=== PATIENT | female | born 1980 | race Caucasian/White ===

== ENCOUNTER 2020-09-05 16:11 | Outpatient (REF) | payer OTHER, SELFPAY ==
--- NOTE | 2020-09-05 16:16 | MM_ITS ---
EXAMINATION: MM SCREENING DIGITAL BREAST TOMOSYNTHESIS, BILATERAL CLINICAL INFORMATION: Screening. Asymptomatic. The lifetime risk of breast cancer based on the Tyrer-Cuzick Model is 10%. COMPARISON: Mammography: 08/28/2019 (baseline) TECHNIQUE: Digital breast tomosynthesis is performed in both the craniocaudal and mediolateral oblique views along with computer-aided detection (CAD). Synthesized 2D images are generated from the tomosynthesis. FINDINGS: There are scattered areas of fibroglandular density (ACR BI-RADS breast composition Category b). There are no significant masses, abnormal calcifications, or other abnormalities. No significant changes from prior baseline exam. MM/MM tomosynthesis screening BI IMPRESSION: There are no significant changes from prior study. ASSESSMENT: BI-RADS 1: Negative RECOMMENDATION: Routine annual mammography screening. This patient's information was entered into a reminder system with a target due date for their next mammogram.
== END 2020-09-05 16:12 | disposition home or self-care (01) ==
LOC: HO.MAMMO 16:11
PROVIDERS: PCP Physician Assistant; Visit Provider Physician Assistant
DX: Z12.31 Encounter for screening mammogram for malignant neoplasm of breast (principal)
CPT/HCPCS: 77063; 77067

== ENCOUNTER 2022-12-04 15:32 | Outpatient (REF) | payer OTHER, SELFPAY ==
--- NOTE | ~2022-12-04 | MM_ITS ---
EXAMINATION: MM SCREENING DIGITAL BREAST TOMOSYNTHESIS, BILATERAL CLINICAL INFORMATION: Screening. Asymptomatic. The lifetime risk of breast cancer based on the Tyrer-Cuzick Model is 10%. COMPARISON: Mammography: September 05, 2020 and August 28, 2019 TECHNIQUE: Digital breast tomosynthesis is performed in both the craniocaudal and mediolateral oblique views along with computer-aided detection (CAD). Synthesized 2D images are generated from the tomosynthesis. FINDINGS: The breasts are heterogeneously dense, which may obscure small masses (ACR BI-RADS breast composition Category c). There are no significant masses, abnormal calcifications, or other abnormalities. MM/MM tomosynthesis screening BI IMPRESSION: No significant changes ASSESSMENT: BI-RADS 1: Negative RECOMMENDATION: Routine annual mammography screening. This patient's information was entered into a reminder system with a target due date for their next mammogram.
== END 2022-12-04 15:33 | disposition home or self-care (01) ==
LOC: HO.MAMMO 15:32
PROVIDERS: Visit Provider Physician Assistant
DX: Z12.31 Encounter for screening mammogram for malignant neoplasm of breast (principal)
CPT/HCPCS: 77063; 77067

== ENCOUNTER 2024-10-01 15:26 | Outpatient (REF) | payer OTHER, SELFPAY ==
--- NOTE | ~2024-10-01 | MM_ITS ---
EXAMINATION: MM SCREENING DIGITAL BREAST TOMOSYNTHESIS, BILATERAL CLINICAL INFORMATION: Screening. Asymptomatic. COMPARISON: Mammography: Comparison is made with available priors TECHNIQUE: Digital breast mammography with tomosynthesis is performed in both the craniocaudal and mediolateral oblique views along with computer-aided detection (CAD). FINDINGS: The breasts are heterogeneously dense, which may obscure small masses (ACR BI-RADS breast composition Category c). There are no significant masses, abnormal calcifications, or other abnormalities. MM/MM tomosynthesis screening BI IMPRESSION: No mammographic evidence of malignancy. ASSESSMENT: BI-RADS BI-RADS 1 - Negative RECOMMENDATION: Routine annual mammography screening. 1 year F/U This examination should not preclude the clinical evaluation of a suspicious palpable abnormality. This patient's information was entered into a reminder system with a target due date for their next mammogram. Electronically signed by: Kenyetta Cote DO 10/12/2024 09:40 AM IBETH
== END 2024-10-01 15:27 | disposition home or self-care (01) ==
LOC: HO.MAMMO 15:26
PROVIDERS: PCP Nurse Practitioner Adult Health; Visit Provider Nurse Practitioner Adult Health
DX: Z12.31 Encounter for screening mammogram for malignant neoplasm of breast (principal)
CPT/HCPCS: 77063; 77067

== ENCOUNTER → 2024-10-01 15:45 | Outpatient (BNV) | payer OTHER, SELFPAY | PROVIDERS: PCP Nurse Practitioner Adult Health; Visit Provider Internal Medicine | DX: Z12.31 Encounter for screening mammogram for malignant neoplasm of breast (principal) | CPT/HCPCS: 77063; 77067 ==

== ENCOUNTER 2025-09-29 15:17 | Outpatient (AMB) | payer OTHER, SELFPAY ==
--- NOTE | 2025-09-29 15:45 | A.OFFPC_ITS ---
Vital Signs 09/29/25 15:55 Height 5 ft 3.35 in Weight 112 lb BMI 19.6 BP 105/59 L Blood Pressure Location Rt brachial Position Sitting Respiration 14 Pulse 78 Pulse Source Pulse Oximeter Temp 97.3 F Temp Source Temporal Artery Scan Pulse Oximetry (%) 96 Oxygen Delivery Method Room Air Intake Visit Reasons: Annual Physical, New patient Associate Professor Of Counseling Required: No Accompanied by: Self / Same As Patient Allergies No Known Allergies Allergy (Verified 09/29/25 16:07) Medication List - Last Reconciled 09/29/25 by Susanne Tan PA-C estradiol 1 patch transdermal QWEEK progesterone micronized 200 mg PO BEDTIME spironolactone 50 mg PO BID Tobacco use date assessed: 09/29/25 Dental Screening Dental Screen Date: 09/29/25 Did you have a dental visit in the last 12 months?: Yes Did you have a dental problem in the last 6 months where you did not have access to dental care?: No Was dental information given to patient?: Patient has dentist HPI HPI Comments History of Present Illness Details History of Present Illness The patient is a 44-year-old female presenting for an annual physical exam and to establish care as a new patient. She has not had a primary care provider in a long time, with her last physical being in 2019. At that time, blood work revealed a low white blood cell count of 4,000, mild anemia with a red blood cell count of 4.14 but normal hemoglobin and hematocrit, and a slightly high bicarbonate of 30. Other lab results including lipids and vitamin D were normal. The patient reports a history of severe migraines that were associated with vomiting and were debilitating, causing her to be bedridden for days. She previously took Imitrex with good effect, but the migraines had resolved and are now starting to recur. The patient is in a perimenopausal state and takes estradiol and progesterone, prescribed by her occupational medicine officer, Amy Moser. She also takes spironolactone, prescribed by her resource engineer for many years, for oily skin, which she finds effective. She had a mole removed last year by her resource engineer, and it was benign. For health maintenance, the patient undergoes annual mammograms and is currently due for one. She has not yet had a screening colonoscopy. She denies any family history of breast, colon, prostate, or skin cancer. Social History - Employment: Employed at [employer]. - Family Status: Has a boyfriend and two daughters, ages 17 and 19. Results - Labs from 2019: Showed a white blood c ell count of 4,000, red blood cell count of 4.14, normal hemoglobin and hematocrit, normal platelets, normal electrolytes, normal kidney function, normal calcium, normal lipids, and good vitamin D level. Bicarbonate was slightly elevated at 30. - Pathology from last year: A removed sk in mole was benign. [facility] Medical History (Updated 09/29/25 @ 16:40 by Susanne Tan PA-C) History of mammogram (~10/01/24) Oily skin Meliza-menopause Healthcare maintenance Migraine headache Annual physical exam Thyroid nodule Family History Father Sepsis Mother Lung cancer Social History Housing: House Alcohol intake: current Alcohol intake frequency: a few times a week Patient Tobacco Use Status: Never used Tobacco service: No Current occupational status: employed Cognitive needs: No Hearing needs: No Vision needs: Yes (reading glasses) Questionnaire PHQ-9 Over the last 2 weeks, how often have you been bothered by any of the following problems? 1. Little interest or pleasure in doing things: not at all 2. Feeling down, depressed, or hopeless: not at all 3. Trouble falling or staying asleep, or sleeping too much: not at all 4. Feeling tired or having little energy: not at all 5. Poor appetite or overeating: not at all 6. Feeling bad about yourself - or that you are a failure or have let yourself or your family down: not at all 7. Trouble concentrating on things, such as reading the newspaper or watching television: not at all 8. Moving or speaking so slowly that other people could have noticed. Or the opposite - being so fidgety or restless that you have been moving around a lot more than usual: not at all 9. Thoughts that you would be better off or of hurting yourself in some way: not at all Total score: 0 Depression Screening Interpretation: Negative Depression Screening Done: Yes 80483 - PHQ-9 Billing: Yes Source: Developed by Drs. Robert Burgos, Joe Evans and colleagues, with an educational maurice from [email or web address]. Thrive Questionnaire Date Thrive assessed: 09/29/25 I am a: Patient What is your living situation today?: I have a steady place to live Within the past 12 months, did the food you bought not last and you didn't have the money to get more?: Never true Within the past 12 months, did you worry whether your food would run out before you got money to buy more?: Never true Do you have trouble paying for medicines?: No Do you have trouble getting transportation to medical appointments?: No Do you have trouble paying your heating and electricity bill?: No Do you have trouble taking care of your child, family member or friend?: No Do you have trouble with day-to-day activities such as bathing, preparing meals, shopping, managing finances, etc.?: No Are you currently unemployed and looking for a job?: No Are you interested in more education?: No Please select the resources that you would like help with: None THRIVE Score: 0 AUDIT C Alcohol Use Questionnaire (AUDIT-C) 1. How often do you have a drink containing alcohol?: 2-4 times a month 2. How many drinks containing alcohol do you have on a typical day when you are drinking?: 1 or 2 3. How often do you have six or more drinks on one occasion?: Never Total Score: 2 Score Reviewed/Action Taken: No JAE-7 AMB Questionnaire JAE-7 Date JAE - 7 assessed: 09/29/25 Feeling nervous, anxious, or on edge: 0 = Not at all Not being able to stop or control worryin = Not at all Worrying too much about different things: 0 = Not at all Trouble relaxin = Not at all Being so restless that it is hard to sit still: 0 = Not at all Becoming easily annoyed or irritable: 0 = Not at all Feeling afraid as if something awful might happen: 0 = Not at all Total JAE-7 score (0-4 normal; 5-9 mild; 10-14 moderate; 15-21 severe): 0 Source: Developed by Paloma Reyes Kurt Kroenke and colleagues, with an educational maurice from [email or web address]. JAE-7 Assessment Billing JAE-7 Assessment Tool: JAE-7 Assessment 58716 Review of Systems Narrative Review of Systems - Constitutional: Denies unintentional weight loss. - Neurological: Reports history of severe migraines, which are currently recurring. - GI: Reports nausea and vomiting associated with migraines. Denies black or bloody stools. - Cardiovascular: Denies chest pain or leg swelling. - Respiratory: Denies shortness of breath with activity. - : Denies urinary issues. - Skin: Reports oily skin, controlled with medication. Denies any known tick bites. Reports a mole was removed last year and was benign. - Endocrine: Denies pain on palpation of thyroid area. Const All systems reviewed & are unremarkable except as noted in HPI and below Physical exam (Primary Care) Vital Signs: Last Vital Signs Temp 97.3 F 09/29/25 15:55 Pulse 78 09/29/25 15:55 Resp 14 09/29/25 15:55 BP 105/59 L 09/29/25 15:55 Pulse Ox 96 09/29/25 15:55 Oxygen Delivery Method Room Air 09/29/25 15:55 Care Plan Goal for BP management: <140/90 at Goal BMI result Body Mass Index 19.6 Normal BMI Tobacco/Smoking Status: Tobacco use Status Tobacco use date assessed 09/29/25 09/29/25 15:49 Patient Tobacco Use Status Never used Tobacco 09/29/25 16:01 PHQ-9: PHQ-9 Score PHQ-9: Total score 0 09/29/25 16:01 Depression Screening Interpretation: Negative Thrive Assessment: Date of Thrive Assessment Date Thrive assessed 09/29/25 09/29/25 15:49 Narrative Physical Exam Appearance: Alert. Oriented X3. No acute distress. Head: Normal external exam. Normocephalic. Atraumatic. Eyes: Pupils are equal, round, and reactive to light. Extraocular movements intact. Conjunctiva and sclera normal. Eyelids normal. Ears: External auditory canal normal. Tympanic membranes normal. Throat: Pharynx normal. Uvula midline. Moist mucous membranes. Neck: Normal inspection. Neck supple. Full range of motion. No adenopathy. Thyroid is a little bit bigger than expected. No meningeal signs. No neck mass noted. Cardiovascular: Normal heart rate and rhythm. Heart sound normal. No murmurs noted. Pulses normal throughout. Respiratory: No respiratory distress. Painless inspiration. Breath sounds normal. No wheezes/rales/rhonchi noted. Chest nontender. No accessory muscle usage noted or decreased air movement noted. Abdomen: Soft and nontender. Bowel sounds normal in all 4 quadrants. No distention noted. No organomegaly noted. No visible injury noted. Back: No costovertebral angle tenderness. Full range of motion noted. Skin: Skin warm and dry. Normal skin color. Normal skin turgor. No rashes/lesions/lacerations noted. Extremities: No lower extremity edema. Extremities exhibit normal range of motion. Extremities nontender. Neuro: Oriented X 3. No motor deficit. No sensory deficit. Reflexes normal. Office Procedures Flu Questionnaire Does the patient have a severe egg allergy?: No Does the patient have severe life threatening allergies?: No Does the patient have a fever or illness today?: No Has the patient ever had Guillain-Mercer Syndrome?: No Has the patient ever had any past reaction to a flu shot?: No Immunizations Fluarix [id number] (PF) 45 mcg (15 mcg x 3)/0.5 mL IM syringe Performing Provider: Susanne Tan PA-C [facility] Documented (not given) by: MELINDA Reyes on 09/29/25 16:01 Reason Not Given: Received Previously Results Reviewed Results Reviewed: - Labs from 2019: Showed a white blood cell count of 4,000, red blood cell count of 4.14, normal hemoglobin and hematocrit, normal platelets, normal electrolytes, normal kidney function, normal calcium, normal lipids, and good vitamin D level. Bicarbonate was slightly elevated at 30. - Pathology from last year: A removed skin mole was benign. Coding Level of Care Code New Pt Level 4 (78481) New Pt Prev Care 40-64y(04599) Diagnoses Annual physical exam Z00.00 Thyroid nodule E04.1 Migraine headache G43.909 Healthcare maintenance Z00.00 Meliza-menopause N95.1 Oily skin R23.4 History of mammogram Z92.89 Additional Codes PHQ-9 - 04268 - PHQ-9 Billing: Yes ([id number]) JAE-7 Assessment Billing - JAE-7 Assessment Tool: JAE-7 Assessment 17812 ([id number]) Assessment & Plan Assessment & Plan (1) Annual physical exam: Code(s): Z00.00 - Encounter for general adult medical examination without abnormal findings Category: Medical (2) Thyroid nodule: Code(s): E04.1 - Nontoxic single thyroid nodule Category: Medical Plan: The physical exam revealed an enlarged, lumpy thyroid gland. A thyroid ultrasound will be ordered to evaluate for nodules or other abnormalities. Blood work will include a thyroid panel. The patient was counseled that if a significant nodule is found, a referral to endocrinology for further evaluation and possible biopsy may be necessary. (3) Migraine headache: Code(s): G43.909 - Migraine, unspecified, not intractable, without status migrainosus Category: Medical Plan: The patient reports a history of severe, debilitating migraines that are recurring. Sumatriptan 50 mg was prescribed, with instructions to take one tablet at the onset of a headache and a repeat dose after 2 hours if needed, with a maximum of four tablets in 24 hours. Ondansetron ODT was also prescribed to be taken every 4-6 hours as needed for associated nausea. (4) Healthcare maintenance: Code(s): Z00.00 - Encounter for general adult medical examination without abnormal findings Category: Medical Plan: Fasting blood work was ordered, including a CBC, CMP, ESR, CRP, magnesium, vitamin B12, vitamin D, thyroid panel, hemoglobin A1c, and a lipid panel. An order will be placed for her annual screening mammogram, for which she is due. A referral will be placed for a screening colonoscopy with Dr. Lezn, as requested. Follow-up is scheduled in three months to review results and the patient's status, with the possibility of extending the follow-up interval if results are unremarkable. (5) Meliza-menopause: Code(s): N95.1 - Menopausal and female climacteric states Category: Medical Plan: The patient is taking estradiol and progesterone for perimenopausal symptoms, which is managed by her occupational medicine officer. She will continue her current regimen under her VIBRATING SCREED OPERATOR's care. (6) Oily skin: Code(s): R23.4 - Changes in skin texture Category: Medical Plan: The patient takes spironolactone for oily skin, which is managed by her resource engineer. She reports it is effective and will continue management with her specialist. (7) History of mammogram: Onset Date: ~10/01/24 Code(s): Z92.89 - Personal history of other medical treatment Category: Medical Plan: Will refer for repeat annual mammogram Plan Plan Patient was informed and verbally consented to the use of an ambient scribe for clinic note documentation during this visit. 1. Goiter The physical exam revealed an enlarged, lumpy thyroid gland. A thyroid ultrasound will be ordered to evaluate for nodules or other abnormalities. Blood work will include a thyroid panel. The patient was counseled that if a significant nodule is found, a referral to endocrinology for further evaluation and possible biopsy may be necessary. 2. Migraine The patient reports a history of severe, debilitating migraines that are recurring. Sumatriptan 50 mg was prescribed, with instructions to take one tablet at the onset of a headache and a repeat dose after 2 hours if needed, with a maximum of four tablets in 24 hours. Ondansetron ODT was also prescribed to be taken every 4-6 hours as needed for associated nausea. 3. Health Maintenance Fasting blood work was ordered, including a CBC, CMP, ESR, CRP, magnesium, vitamin B12, vitamin D, thyroid panel, hemoglobin A1c, and a lipid panel. An order will be placed for her annual screening mammogram, for which she is due. A referral will be placed for a screening colonoscopy with Dr. Lenz, as requested. Follow-up is scheduled in three months to review results and the patient's status, with the possibility of extending the follow-up interval if results are unremarkable. 4. Perimenopausal State The patient is taking estradiol and progesterone for perimenopausal symptoms, which is managed by her occupational medicine officer. She will continue her current regimen under her VIBRATING SCREED OPERATOR's care. 5. Spironolactone For Oily Skin The patient takes spironolactone for oily skin, which is managed by her resource engineer. She reports it is effective and will continue management with her specialist. Discussion Notes I informed the patient about my finding of an enlarged and lumpy thyroid gland during the physical exam. I explained that while this could be normal because she is thin, I am ordering a thyroid ultrasound for a closer look. I reassured h er that it is likely nothing to worry about, and explained that if a nodule is found, most are benign, but may require a referral to endocrinology for evaluation and possible biopsy depending on the findings. We discussed her recurring severe migraines. I prescribed sumatriptan for acute treatment and ondansetron for nausea, explaining the dosing for both medications. We reviewed the plan for health maintenance, including orders for fasting lab work, a screening mammogram, and a referral for a screening colonoscopy. I recommended a follow-up appointment in three months to review all results, but noted that we can cancel it and schedule for a later date if the results are normal and she is doing well. Orders: Orders Comprehensive [place]. Panel Fast Today Z00.00 - Encounter for general adult medical examination without abnormal findings Vitamin B12 and Folate Today Z00.00 - Encounter for general adult medical examination without abnormal findings Hemoglobin A1c Today Z00.00 - Encounter for general adult medical examination without abnormal findings Lipid Panel Today Z00.00 - Encounter for general adult medical examination without abnormal findings US thyroid Today E04.1 - Nontoxic single thyroid nodule Influenza 1653-1301 Immunization Today Z23 - Encounter for immunization MM screening mammo BI Today Z12.31 - Encounter for screening mammogram for malignant neoplasm of breast C Reactive Protein Today Z00.00 - Encounter for general adult medical examination without abnormal findings Complete Blood Count Auto Diff Today Z00.00 - Encounter for general adult medical examination without abnormal findings Erythrocyte Sedimentation Rate Today Z00.00 - Encounter for general adult medical examination without abnormal findings Magnesium Today Z00.00 - Encounter for general adult medical examination with out abnormal findings Vitamin D 25-OH Total Today Z00.00 - Encounter for general adult medical examination without abnormal findings UA CC w/rflx Micro + Cult Today Z00.00 - Encounter for general adult medical examination without abnormal findings TSH reflex Free T4 Today Z00.00 - Encounter for general adult medical e xamination without abnormal findings Referrals Gastroenterology Referral Z12.11 - Encounter for screening for malignant neoplasm of colon Medications: New sumatriptan succinate (Imitrex) take 1 tab at onset of headache; if no relief may repeat 1 tab after at least 2 hrs; max = 4 tabs/24 hr PO 30 tabs 3RF ondansetron 4 mg PO Q8H PRN 30 tabs 3RF nausea and vomiting Patient Instructions: Patient Instructions - Go for your bloodwork, making sure not to eat or drink anything except water for 12 hours beforehand. - The imaging department will call you to schedule your thyroid ultrasound. - The GI specialist's office will call you within a month to schedule your colonoscopy. - You are due for your annual mammogram; the facility will call you to schedule it. - For migraines, take one Sumatriptan pill at the start of a headache. If you do not feel relief, you can take another pill after at least two hours. Do not take more than four pills in a 24-hour period. - For nausea, place one Zofran tablet under your tongue to dissolve every 4 to 6 hours as needed. - Please schedule a follow-up visit in three months to review your test results.
[2025-09-29 15:55] VITALS: BP 105/59; PULSE 78; RESP 14; TEMP 36.3; O2SAT 96; BMI 19.6
== END 2025-09-29 16:28 | disposition home or self-care (01) ==
PROVIDERS: PCP Physician Assistant Medical; Visit Provider Physician Assistant Medical
DX: Z00.00 Encounter for general adult medical examination without abnormal findings (principal); E04.1 Nontoxic single thyroid nodule; G43.909 Migraine, unspecified, not intractable, without status migrainosus; N95.1 Menopausal and female climacteric states; R23.4 Changes in skin texture; Z92.89 Personal history of other medical treatment; Z23 Encounter for immunization

== ENCOUNTER → 2025-09-29 15:17 | Outpatient (BNVA) | payer OTHER, SELFPAY | PROVIDERS: PCP Physician Assistant Medical; Visit Provider Physician Assistant Medical | DX: Z28.89 Immunization not carried out for other reason (principal); Z00.00 Encounter for general adult medical examination without abnormal findings; E04.1 Nontoxic single thyroid nodule; G43.909 Migraine, unspecified, not intractable, without status migrainosus; N95.1 Menopausal and female climacteric states; R23.4 Changes in skin texture; Z92.89 Personal history of other medical treatment | CPT/HCPCS: 96127 ==

== ENCOUNTER 2025-10-14 15:33 | Outpatient (REF) | payer OTHER, SELFPAY ==
--- NOTE | ~2025-10-14 | MM_ITS ---
EXAMINATION: MM SCREENING DIGITAL BREAST TOMOSYNTHESIS, BILATERAL CLINICAL INFORMATION: Screening. Asymptomatic. COMPARISON: Mammography: Comparison is made with available priors TECHNIQUE: Digital breast mammography with tomosynthesis is performed in both the craniocaudal and mediolateral oblique views along with computer-aided detection (CAD). FINDINGS: The breasts are heterogeneously dense, which may obscure small masses. There are no significant masses, abnormal calcifications, or other abnormalities. MM/MM tomosynthesis screening BI IMPRESSION: No mammographic evidence of malignancy. ASSESSMENT: BI-RADS Category 1: Negative RECOMMENDATION: Routine annual mammography screening. 1 year F/U This examination should not preclude the clinical evaluation of a suspicious palpable abnormality. This patient's information was entered into a reminder system with a target due date for their next mammogram. Electronically signed by: Kenyetta Cote DO 10/18/2025 12:16 PM IBETH
== END 2025-10-14 15:34 | disposition home or self-care (01) ==
LOC: HO.MAMMO 15:33
PROVIDERS: PCP Physician Assistant Medical; Visit Provider Nurse Practitioner Adult Health
DX: Z12.31 Encounter for screening mammogram for malignant neoplasm of breast (principal)
CPT/HCPCS: 77063; 77067

== ENCOUNTER → 2025-10-14 15:45 | Outpatient (BNV) | payer OTHER, SELFPAY | PROVIDERS: PCP Physician Assistant Medical; Visit Provider Internal Medicine | DX: Z12.31 Encounter for screening mammogram for malignant neoplasm of breast (principal) | CPT/HCPCS: 77063; 77067 ==